=== PATIENT | male | born 1995 | race Caucasian/White ===

== ENCOUNTER 2021-07-16 11:29 | Emergency (ER) | payer MEDICAID ==
[~2021-07-16] VITALS: Ht 180.3 cm; Wt 127.0 kg
[2021-07-16] MEDS ORDERED: IBUPROFEN 800MG TABLET PO ONE (11:45)
[2021-07-16] MEDS ORDERED: IBUP-2030 MT (12:38)
[2021-07-16 12:44] VITALS: BP 114/75
== END 2021-07-16 12:47 | disposition home or self-care (01) ==
LOC: ER 12:21
DX: S60.221A Contusion of right hand, initial encounter (principal); M79.641 Pain in right hand; X58.XXXA Exposure to other specified factors, initial encounter; Y93.89 Activity, other specified; Y92.89 Other specified places as the place of occurrence of the external cause; Y99.8 Other external cause status
CPT/HCPCS: 73130; 99283

== ENCOUNTER 2021-07-24 17:06 | Emergency (ER) | payer MEDICAID ==
[~2021-07-24] VITALS: Ht 180.3 cm; Wt 107.0 kg
[~2021-07-24 17:06] MED LIST: IBUP-2030 MT
[2021-07-24 17:13] VITALS: BP 168/93
== END 2021-07-24 19:23 | disposition home or self-care (01) ==
LOC: ER 17:06
DX: M25.532 Pain in left wrist (principal); W01.0XXA Fall on same level from slipping, tripping and stumbling without subsequent striking against object, initial encounter; Y93.64 Activity, baseball; Y92.89 Other specified places as the place of occurrence of the external cause; Y99.8 Other external cause status
CPT/HCPCS: 73110; 73130; 99284

== ENCOUNTER 2023-07-05 15:19 | Emergency (ER) | payer SELFPAY ==
[~2023-07-05] VITALS: Ht 180.3 cm; Wt 123.0 kg
[2023-07-05 15:30] VITALS: O2SAT 100
[2023-07-05] MEDS: OXYCODONE HCL/ACETAMINOPHEN 5/325MG TABLET PO ONE (15:50)
[2023-07-05 16:09] VITALS: BP 130/77; PULSE 70; RESP 16; TEMP 98.6
== END 2023-07-05 16:43 | disposition home or self-care (01) ==
LOC: ER 15:19
DX: M79.641 Pain in right hand (principal)
CPT/HCPCS: 73130; 99283

== ENCOUNTER 2024-05-03 08:28 | Emergency (ER) | payer BC ==
[~2024-05-03] VITALS: Ht 172.7 cm; Wt 122.5 kg
[2024-05-03 08:33] VITALS: O2SAT 98
[2024-05-03] MEDS ORDERED: CLIN-194 MT (08:35)
[2024-05-03] MEDS ORDERED: DIPH25CA83 MT (08:35)
[2024-05-03 08:36] VITALS: BP 138/80; PULSE 92; RESP 16; TEMP 36.8; O2SAT 98
[2024-05-03] MEDS: DIPHENHYDRAMINE 50MG CAPSULE PO ONE (08:45)
== END 2024-05-03 08:47 | disposition home or self-care (01) ==
LOC: ER 08:28
DX: T78.40XA Allergy, unspecified, initial encounter (principal); F10.90 Alcohol use, unspecified, uncomplicated; Y92.89 Other specified places as the place of occurrence of the external cause; Y90.9 Presence of alcohol in blood, level not specified
CPT/HCPCS: 99283; Q0163

== ENCOUNTER 2024-10-11 11:36 | Emergency (ER) | payer BC ==
[~2024-10-11] VITALS: Ht 182.9 cm; Wt 114.0 kg
[~2024-10-11 11:36] MED LIST changes: +CLIN-194 MT; +DIPH25CA83 MT
[2024-10-11 11:38] VITALS: O2SAT 99
[2024-10-11] MEDS ORDERED: DICL100G58 TP (12:52)
[2024-10-11] MEDS: IBUPROFEN 800MG TABLET PO ONE (13:01)
[2024-10-11 13:02] VITALS: BP 132/88; PULSE 72; RESP 16; TEMP 36.9; O2SAT 100
== END 2024-10-11 13:02 | disposition home or self-care (01) ==
LOC: ER 11:41
DX: M25.532 Pain in left wrist (principal); Z79.899 Other long term (current) drug therapy
CPT/HCPCS: 29125; 73110; 99283

== ENCOUNTER 2024-12-24 07:54 | Emergency (ER) | payer BC ==
[~2024-12-24] VITALS: Ht 182.9 cm; Wt 118.0 kg
[~2024-12-24 07:54] MED LIST changes: +DICL100G58 TP
[2024-12-24 07:57] VITALS: O2SAT 99
[2024-12-24] MEDS: VISCOUS LIDOCAINE 2% 15 ML UDC MM ONE (08:18)
[2024-12-24] MEDS: ACETAMINOPHEN 500MG TABLET PO ONE (08:18)
[2024-12-24] MEDS: MAGNESIUM/ALUMINUM HYDROXIDE/SIMETHICONE 30ML UDC PO ONE (09:13)
[2024-12-24] MEDS ORDERED: BENZ1LOZ73 PO (09:22)
[2024-12-24] MEDS ORDERED: PHEN20SP MT (09:22)
[2024-12-24] MEDS ORDERED: TOPUD PO (09:22)
[2024-12-24 09:50] VITALS: BP 131/86; PULSE 82; RESP 16; TEMP 36.7; O2SAT 100
== END 2024-12-24 09:56 | disposition home or self-care (01) ==
LOC: ER 07:59
DX: J02.8 Acute pharyngitis due to other specified organisms (principal); B97.89 Other viral agents as the cause of diseases classified elsewhere
CPT/HCPCS: 87070; 87430; 99284

== ENCOUNTER 2025-02-06 18:13 | Emergency (ER) | payer BC ==
[~2025-02-06] VITALS: Ht 182.9 cm; Wt 114.0 kg
[~2025-02-06 18:13] MED LIST changes: +BENZ1LOZ73 PO; +PHEN20SP MT; +TOPUD PO
[2025-02-06 18:17] VITALS: BP 126/87; PULSE 65; RESP 16; TEMP 36.7; O2SAT 99
[2025-02-06] MEDS ORDERED: NITR-87 MT (18:20)
[2025-02-06] MEDS ORDERED: PHEN-815 MT (18:20)
== END 2025-02-06 18:36 | disposition home or self-care (01) ==
LOC: ER 18:13
DX: R30.0 Dysuria (principal)
CPT/HCPCS: 99283

== ENCOUNTER 2025-02-09 22:30 | Emergency (ER) | payer BC ==
[~2025-02-09] VITALS: Ht 180.3 cm; Wt 116.0 kg
[~2025-02-09 22:30] MED LIST changes: +NITR-87 MT; +PHEN-815 MT
[2025-02-09 22:41] VITALS: O2SAT 100
[2025-02-10 01:56] VITALS: BP 120/80; PULSE 66; RESP 18; TEMP 36.7; O2SAT 100
== END 2025-02-10 02:02 | disposition home or self-care (01) ==
LOC: ER 22:30
DX: Z00.8 Encounter for other general examination (principal)
CPT/HCPCS: 36415; 86850; 86900; 99283